=== PATIENT | female | born 1950 | race Caucasian/White ===

== ENCOUNTER → 2021-06-11 | Outpatient (CLI) | payer OTHER ==
[~2021-06-11] MED LIST: ASTELIN30 ML NS; CALCIUM 500 +1 EAC5; CARISOPRODOL 3350 MG PO; NORCO 5-325 TA1 EACH PO; ONDANSETRON HCL4 M2 PO; SYNTHROID75 MCG PO; TIROSINT100 MCG PO; VITAMIN D3400 UNI2; XOPENEX HFA15 GM INH
== END ==
LOC: RAD 11:49
PROVIDERS: ATTEND Nurse Practitioner
DX: M47.817 Spondylosis without myelopathy or radiculopathy, lumbosacral region (principal); M51.36 Other intervertebral disc degeneration, lumbar region; M85.88 Other specified disorders of bone density and structure, other site; M43.16 Spondylolisthesis, lumbar region; I70.0 Atherosclerosis of aorta